=== PATIENT | male | born 1995 | race Caucasian/White ===

== ENCOUNTER 2019-07-05 07:38 | Emergency (ER) | payer OTHER ==
[~2019-07-05] VITALS: Ht 170.2 cm; Wt 58.7 kg
[2019-07-05 07:43] VITALS: BP 138/89
== END 2019-07-05 09:33 | disposition home or self-care (01) ==
LOC: ED 07:38
DX: S09.8XXA Other specified injuries of head, initial encounter (principal); W22.03XA Walked into furniture, initial encounter; Y93.89 Activity, other specified; Y92.89 Other specified places as the place of occurrence of the external cause; Y99.0 Civilian activity done for income or pay